=== PATIENT | female | born 1985 | race Caucasian/White ===

== ENCOUNTER 2021-02-17 08:21 | Emergency (ER) | payer SELFPAY ==
[~2021-02-17] VITALS: Ht 157.5 cm; Wt 36.3 kg
[2021-02-17 09:44] LABS: BASOPHILS ABSOLUTE AUTO 0.02 K/mm3 (0.00-0.23); BASOPHILS PERCENT AUTO 0 % (0-2); EOSINOPHILS ABSOLUTE AUTO 0.06 K/mm3 (0.00-0.68); EOSINOPHILS PERCENT AUTO 0 % (0-6); Hematocrit 29.7 % (33.0-51.0); Hemoglobin 9.5 g/dL (11.5-16.0); IMMATURE GRAN PERCENT AUTO 1 % (0-1); LYMPHOCYTES PERCENT AUTO 7 % (21-46); MONOCYTES ABSOLUTE AUTO 0.67 K/mm3 (0.16-1.47); MONOCYTES PERCENT AUTO 4 % (4-13); Mean Corpuscular HGB 33.7 pg (26.0-34.0); Mean Corpuscular Volume 105 fL (80-100); NEUTROPHILS ABSOLUTE AUTO 14.66 K/mm3 (1.96-9.15); NEUTROPHILS PERCENT AUTO 88 % (41-73); Platelet Count 204 K/mm3 (150-400); RDW Coefficient Variation 14.6 % (11.7-14.2); RDW Standard Deviation 57.2 fL (35.1-46.3); Red Blood Cell Count 2.82 M/mm3 (3.80-5.20); White Blood Cell Count 16.61 K/mm3 (4.00-11.30)
[2021-02-17 10:03] LABS: Albumin, Blood 3.1 g/dL (3.4-5.0); Albumin/Globulin Ratio 0.8 (0.8-1.8); Bilirubin, Total 0.2 mg/dL (0.1-1.0); Bun/Creatinine Ratio 15.1 (12.0-20.0); Calcium, Blood 8.8 mg/dL (8.5-10.1); Creatinine, Blood 1.66 mg/dL (0.40-1.00); Globulin, Blood 4.1 g/dL (2.2-4.0); Potassium, Blood 4.4 mmol/L (3.5-5.5); Total Protein, Blood 7.2 g/dL (6.4-8.2)
[2021-02-17] MEDS ORDERED: FAMO20 PO (10:05)
[2021-02-17] MEDS ORDERED: VITAMIN D310 MC5 PO (10:06)
[2021-02-17] MEDS ORDERED: BENADRYL25 MG PO (10:06)
[2021-02-17] MEDS ORDERED: LOPE2C PO (10:08)
[2021-02-17 13:51] LABS: Source, Urine Clean Catch
[2021-02-17 14:11] LABS: Appearance, Urine Clear (Clear); Bilirubin, Urine Neg (Neg); Blood, Urine Neg (Neg); Color, Urine Yellow (P-Yellow); Glucose Qualitative, Urine Neg (Neg); Ketones, Urine Neg (Neg); Leukocyte Esterase, Urine Neg (Neg); Nitrite, Urine Neg (Neg); Protein, Urine Neg (Neg); Specific Gravity, Urine 1.015 (1.003-1.022); Urobilinogen, Urine NORM (Normal); pH, Urine 6.5 (5.0-8.0)
== END 2021-02-17 15:08 | disposition home or self-care (01) ==
LOC: ER 08:21
PROVIDERS: Emergency Medicine
DX: K52.9 Noninfective gastroenteritis and colitis, unspecified (principal); K86.1 Other chronic pancreatitis; E10.65 Type 1 diabetes mellitus with hyperglycemia; D53.9 Nutritional anemia, unspecified; E86.0 Dehydration; Z88.8 Allergy status to other drugs, medicaments and biological substances; Z88.5 Allergy status to narcotic agent; Z91.040 Latex allergy status; Z88.1 Allergy status to other antibiotic agents; Z91.018 Allergy to other foods
CPT/HCPCS: 74177; 80053; 81003; 83690; 85025; 99284-25; A9270; J7030; Q9967